=== PATIENT | female | born 1935 | race Native Hawaiian/Other Pacific Islander ===

== ENCOUNTER 2016-11-28 08:13 | Outpatient (CLI) | payer OTHER | END 2016-11-28 19:05 | disposition home or self-care (01) | LOC: NM 08:13 | DX: R07.89 Other chest pain (principal); E10.9 Type 1 diabetes mellitus without complications; E78.4 Other hyperlipidemia; I10 Essential (primary) hypertension | CPT/HCPCS: A9500; J2785 ==